=== PATIENT | male | born 1970 | race Caucasian/White ===

== ENCOUNTER 2023-08-03 07:06 | Outpatient (CLI) | payer OTHER, SELFPAY ==
--- NOTE | ~2023-08-03 | CT_ITS ---
CT of the Abdomen: Indication: Upper abdominal pain Technique: 2.5 mm axial scans were obtained through the abdomen following intravenous administration of 100 cc of Omnipaque 350. Dose reduction technique was used on this scan by utilizing automated ex posure control and iterative reconstruction technique. The dose-length product (DLP) was 1038.60 mGy- cm. Findings: Scans through the lung bases demonstrate bibasilar noncalcified pulmonary nodules, measuri ng 5 mm the right lung base (axial image 23), and 4 mm and 8 mm at the left lung base (axial images 1 4, 28 respectively).. The liver, spleen, pancreas, gallbladder, adrenals and kidneys are within normal limits. No evidence of aortic aneurysm. No lymphadenopathy. Evidence of prior bariatric surgery noted. Visualized bowel loops are otherwise unremarkable. Small f at-containing umbilical hernia noted. No ascites seen. Impression: No acute abnormality seen. Evidence of prior bariatric surgery. Subcentimeter pulmonary nodules, as detailed above. According to Fleischner Society criteria, for a l ow-risk patient, recommend follow-up CT at 3-6 months, then consider additional 18-[address] For h igh-risk patient, follow-up CT scans at 3-6 months and at 18-24 months are recommended. Small fat-containing umbilical hernia. Reviewed, dictated and finalized at location . AL SOURCING MANAGER Impression: No acute abnormality seen. Evidence of prior bariatric surgery. Subcentimeter pulmonary nodules, as detailed above. According to Fleischner Soc iety criteria, for a low-risk patient, recommend follow-up CT at 3-6 months, th en consider additional 18-[address]. For high-risk patient, follow-up CT scan s at 3-6 months and at 18-24 months are recommended. Small fat-containing umbilical hernia.
== END 2023-08-03 07:07 | disposition home or self-care (01) ==
PROVIDERS: PCP Nurse Practitioner Family; Visit Provider Nurse Practitioner Family
DX: R17 Unspecified jaundice (principal); D64.9 Anemia, unspecified; R10.10 Upper abdominal pain, unspecified; Z98.890 Other specified postprocedural states; R91.8 Other nonspecific abnormal finding of lung field; K42.9 Umbilical hernia without obstruction or gangrene
CPT/HCPCS: 74160; Q9967

== ENCOUNTER 2023-09-17 00:21 | Day surgery (SDC) | payer OTHER, SELFPAY ==
[2023-09-08 15:40] VITALS: BMI 40.0
--- NOTE | 2023-09-09 10:52 | PC.NURSE ---
Patients states he had a normal colonoscopy earlier this year at [facility] and wasn't sure why he needed another one. Spoke with Brenda Pringle in Dr. Soto office- she spoke with Yesenia Rice NP and after review colonoscopy was canceled. I spoke with patient and informed him.
--- NOTE | 2023-09-15 12:10 | SUR.PREOP ---
Patient called regarding upcoming procedure. Reviewed preop instructions, appointment times, and procedure prep.
--- NOTE | 2023-09-17 13:01 | PM.HPGS ---
History of Present Illness History of Present Illness Consent: Risks, benefits, and alternatives have been discussed and questions answered. Patient agrees to proceed with procedure. Chief complaint: Upper Abdominal Pain,Abdominal Distension(gaseous) Narrative: Jesu Berry Jr. is a 53 year old male with history of Dariana-en-Y in 2007, gallbladder removal in 2009 was referred to office for evaluation of upper abdominal pain that started approximately 1-2 months ago. States abdominal pain radiated across upper abdomen over to left upper quadrant, And also at times to the right upper quadrant. After a few days this past. He does recall that he had 1 very little color stool during that period of time also. He wonders if he may have had a bile duct stone.. He states his upper abdomen felt tender and irritated. He reports associated bloating and abdominal tightness. symptoms have improved somewhat after going back on omeprazole. Review of Systems Review of Systems: All systems reviewed & are unremarkable except as noted in HPI and below PMFSH Past Medical History Medical History Afib Anemia Arthritis Asthma Bilateral knee pain Bloating Encounter to establish care GERD (gastroesophageal reflux disease) Iron deficiency anemia Low back pain Multiple lung nodules BRIGHT on CPAP Seasonal allergies Total bilirubin, elevated Upper abdominal pain Family History Family History Father Liver cancer Heart disease Mother Asthma Sibling Asthma Diabetes mellitus Hypertension Daughter Asthma Son Asthma Son Asthma Mother Family history of thyroid disease Patient's mother is in good health Family history of arthritis Father Diabetes mellitus Family history of malignant neoplasm, Onset Age: 60 Sibling Diabetes mellitus Hypertension Patient's sister is in good health Patient's brother is in good health Social History Social History Smoking packs per day: 2.5 Smoking cigarettes per day: 50.0 Years smoked: 20 Smoking pack-years: 50.00 Smoking status: Former smoker Tobacco type: cigarettes Alcohol intake: current Drinks per week: 7 Alcohol use details: WEEKS/ DRINKS Substance use: never Current Housing: Decline to Answer Concerned About Future Housing: Decline to Answer Difficulty Paying Gas/Electric Bills: Decline to Answer Difficulty Paying for Meds: Decline to Answer Currently Unemployed: Decline to Answer Education: Decline to Answer Difficulty w/ Childcare or Family Care: Decline to Answer Living arrangements: with family Spiritual care concerns: No Meds Home Medications and Allergies Home Medications Medication Instructions Recorded Confirmed Type aspirin 81 mg tablet,delayed 81 mg PO DAILY 08/30/19 09/08/23 History release (Adult Aspirin Regimen) cyclobenzaprine 10 mg tablet 10 mg PO TID PRN Muscle Spasm 08/30/19 09/08/23 History acetaminophen 650 mg PO PRN PRN Pain 07/23/23 09/08/23 History albuterol sulfate 90 mcg/actuation 1 inh inhalation Q4H PRN Shortness 07/23/23 09/08/23 History aerosol inhaler Of Breath Or Wheezing atorvastatin 40 mg tablet 40 mg PO DAILY 07/23/23 09/08/23 History bisoprolol fumarate 10 mg tablet 10 mg PO HS 07/23/23 09/09/23 History coQ10 (ubiquinol) 1 cap PO DAILY 07/23/23 09/08/23 History omega-3 fatty acids [Fish Oil] 1,200 mg PO BID 07/23/23 09/08/23 History omeprazole 20 mg capsule,delayed 20 mg PO DAILY 07/23/23 09/08/23 History release rivaroxaban 20 mg tablet (Xarelto) 20 mg PO DAILY 07/23/23 09/08/23 History tramadol 50 mg tablet 50 mg PO Q6H PRN Pain 07/23/23 09/08/23 History zolpidem 5 mg tablet 5 mg PO QHS 07/23/23 09/08/23 History ferrous sulfate 325 mg (65 mg 325 mg PO DAILY 1 month #30 tabs 08/26/23 09/08/23 Rx iron) tablet amoxicilli
[2023-09-17 13:15] VITALS: BP 144/78; PULSE 72; RESP 18; TEMP 36.4; O2SAT 99
[2023-09-17] MEDS: LACTATED RINGERS 1,000 ML 150 ML IV CONT (13:27)
--- NOTE | 2023-09-17 13:29 | WPDANESEPPF ---
Anes - Initial Pre Proc Eval Procedure: Operation Date: 09/17/23 14:30 Proposed Procedures p Esophagogastroduodenoscopy - Oumar Ramirez MD Date/Time: 09/17/23 13:29 Surgeon: Oumar Ramirez MD Pre Op Diagnosis: Upper Abdominal Pain,Abdominal Distension(gaseous) Patient Data Age: 53 Gender: M Height: 1.83 m Weight: 130.7 kg Last Vital Signs Temp 97.6 F 09/17/23 13:15 Pulse 72 09/17/23 13:15 Resp 18 09/17/23 13:15 BP 144/78 H 09/17/23 13:15 Pulse Ox 99 09/17/23 13:15 O2 Del Method Room Air 09/17/23 13:15 Allergies Allergy/AdvReac Type Severity Reaction Status Date / Time Sulfa (Sulfonamide Allergy Intermediate hives Verified 09/17/23 13:14 Antibiotics) Home Medications Medication Instructions Recorded Confirmed Type aspirin 81 mg tablet,delayed 81 mg PO DAILY 08/30/19 09/08/23 History release (Adult Aspirin Regimen) cyclobenzaprine 10 mg tablet 10 mg PO TID PRN Muscle Spasm 08/30/19 09/08/23 History acetaminophen 650 mg PO PRN PRN Pain 07/23/23 09/08/23 History albuterol sulfate 90 mcg/actuation 1 inh inhalation Q4H PRN Shortness 07/23/23 09/08/23 History aerosol inhaler Of Breath Or Wheezing atorvastatin 40 mg tablet 40 mg PO DAILY 07/23/23 09/08/23 History bisoprolol fumarate 10 mg tablet 10 mg PO HS 07/23/23 09/09/23 History coQ10 (ubiquinol) 1 cap PO DAILY 07/23/23 09/08/23 History omega-3 fatty acids [Fish Oil] 1,200 mg PO BID 07/23/23 09/08/23 History omeprazole 20 mg capsule,delayed 20 mg PO DAILY 07/23/23 09/08/23 History release rivaroxaban 20 mg tablet (Xarelto) 20 mg PO DAILY 07/23/23 09/08/23 History tramadol 50 mg tablet 50 mg PO Q6H PRN Pain 07/23/23 09/08/23 History zolpidem 5 mg tablet 5 mg PO QHS 07/23/23 09/08/23 History ferrous sulfate 325 mg (65 mg 325 mg PO DAILY 1 month #30 tabs 08/26/23 09/08/23 Rx iron) tablet amoxicillin 875 mg-potassium 1 tablet PO Q12H #20 tabs 09/04/23 09/08/23 Rx clavulanate 125 mg tablet Slow-Mag 1 tab-cap PO DAILY 09/08/23 09/08/23 History cetirizine 10 mg tablet 10 mg PO DAILY 09/08/23 09/08/23 History multivit,calcium,min-folic acid 1 tablet PO DAILY 09/08/23 09/08/23 History 240 mcg-D3 25 mcg-lycop 300 mcg tablet (One A Day Men Complete) vitamin E (dl, acetate) 180 mg 180 mg PO DAILY 09/08/23 09/08/23 History (400 unit) capsule Patient hx anesthesia problems: none Family hx anesthesia problems: none Results Review: All pre-operative results and documents have been reviewed as part of the pre-operative evaluation. [facility] Past Medical History Medical History Afib Anemia Arthritis Asthma Bilateral knee pain Bloating Encounter to establish care GERD (gastroesophageal reflux disease) Iron deficiency anemia Low back pain Multiple lung nodules BRIGHT on CPAP Seasonal allergies Total bilirubin, elevated Upper abdominal pain Family History Family History Father Liver cancer Heart disease Mother Asthma Sibling Asthma Diabetes mellitus Hypertension Daughter Asthma Son Asthma Son Asthma Mother Family history of thyroid disease Patient's mother is in good health Family history of arthritis Father Diabetes mellitus Family history of malignant neoplasm, Onset Age: 60 Sibling Diabetes mellitus Hypertension Patient's sister is in good health Patient's brother is in good health Social History Social History Smoking packs per day: 2.5 Smoking cigarettes per day: 50.0 Years smoked: 20 Smoking pack-years: 50.00 Smoking status: Former smoker Tobacco type: cigarettes Alcohol intake: current Drinks per week: 7 Alcohol use details: WEEKS/ DRINKS Substance use: never Current Housing: Decline to Answer Concerned About Future Housing: Decline to Answer Difficulty Paying Gas/Elec
[2023-09-17 13:52] VITALS: BP 111/58; PULSE 73; RESP 21; O2SAT 99
[2023-09-17 14:02] VITALS: BP 109/51; PULSE 76; RESP 17; O2SAT 99
[2023-09-17 14:12] VITALS: BP 125/65; PULSE 62; RESP 18; O2SAT 100
== END 2023-09-17 14:15 | disposition home or self-care (01) ==
PROVIDERS: PCP Nurse Practitioner Family; Visit Provider Internal Medicine Gastroenterology
PROC: 0DJ08ZZ Inspection of Upper Intestinal Tract, Via Natural or Artificial Opening Endoscopic (ICD-10-PCS; CPT 43235; principal; 2023-09-17 14:30)
DX: K21.00 Gastro-esophageal reflux disease with esophagitis, without bleeding (principal); D50.9 Iron deficiency anemia, unspecified; I48.91 Unspecified atrial fibrillation; D64.9 Anemia, unspecified; J45.909 Unspecified asthma, uncomplicated; G47.33 Obstructive sleep apnea (adult) (pediatric); E66.01 Morbid (severe) obesity due to excess calories; Z68.39 Body mass index [BMI] 39.0-39.9, adult; Z79.82 Long term (current) use of aspirin; Z79.51 Long term (current) use of inhaled steroids; Z79.01 Long term (current) use of anticoagulants; Z79.891 Long term (current) use of opiate analgesic; Z99.89 Dependence on other enabling machines and devices; Z87.891 Personal history of nicotine dependence; Z82.49 Family history of ischemic heart disease and other diseases of the circulatory system; Z80.0 Family history of malignant neoplasm of digestive organs
CPT/HCPCS: 43239; 88305; J2704; J7120

== ENCOUNTER 2023-11-02 13:24 | Outpatient (CLI) | payer OTHER, SELFPAY ==
--- NOTE | ~2023-11-02 | XR_ITS ---
EXAMINATION: XR chest 2V DATE: 11/02/2023 13:39 INDICATION: Chronic cough and congestion TECHNIQUE: PA and lateral views of the chest were obtained. COMPARISON: CT abdomen dated 08/07/2023 FINDINGS: Asymmetric subtle nodular opacity at the posterior right midlung zone. No other airspace opacities, p ulmonary edema, pleural effusion or pneumothorax. The cardiomediastinal silhouette is normal. Mild th oracic spondylosis with bridging osteophytes at multiple levels consistent with diffuse idiopathic sk eletal hyperostosis (DISH). IMPRESSION: 1. Subtle nodular opacity at the posterior right midlung zone. Recommend low-dose noncontrast chest C T for further evaluation. Reviewed, dictated and finalized at location A. PROFILER IMPRESSION: 1. Subtle nodular opacity at the posterior right midlung zone. Recommend low-do se noncontrast chest CT for further evaluation.
== END 2023-11-02 13:25 ==
PROVIDERS: PCP Nurse Practitioner Family; Visit Provider Nurse Practitioner Family
DX: R91.8 Other nonspecific abnormal finding of lung field (principal)
CPT/HCPCS: 71046

== ENCOUNTER 2023-11-10 11:08 | Outpatient (CLI) | payer OTHER, SELFPAY ==
--- NOTE | ~2023-11-10 | CT_ITS ---
EXAMINATION: CT chest high resolution wo dc DATE: 11/10/2023 11:23 INDICATION: Pulmonary nodules, abnormal chest radiograph TECHNIQUE: Computed tomography (CT) of the chest was performed without intravenous contrast. The dose -length product (DLP) was 805.79 mGy-cm. Automated exposure control and iterative reconstruction tech [employer] were employed. COMPARISON: 11/02/[address] dated 08/03/2023 FINDINGS: No suspicious CT correlate is identified for the reported nodule on the comparison chest ra diograph. Suspect finding was related to pulmonary vasculature. There are stable nodules in the lower lobes measuring up to 6 mm on the left. There are subtle patchy airspace opacities in the right uppe r and lower lobes. No pathologically enlarged thoracic lymph nodes are identified. The heart size is normal. There is calcified coronary artery atherosclerosis. Surgical changes are noted in the stomach . There is mild thoracic spondylosis. IMPRESSION: 1. No suspicious CT correlate identified for the nodule questioned on the comparison chest radiograph . 2. Stable nodules of the visualized lung bases measuring up to 6 mm, likely old granulomatous disease . 3. Subtle airspace opacities in the right upper and lower lobes, likely pneumonia. Reviewed, dictated and finalized at location L. IC SPEAKING PROFESSOR IMPRESSION: 1. No suspicious CT correlate identified for the nodule questioned on the gena rison chest radiograph. 2. Stable nodules of the visualized lung bases measuring up to 6 mm, likely old granulomatous disease. 3. Subtle airspace opacities in the right upper and lower lobes, likely pneumon ia.
== END 2023-11-10 11:09 ==
LOC: MICIMG 11:10
PROVIDERS: PCP Nurse Practitioner Family; Visit Provider Nurse Practitioner Family
DX: R91.8 Other nonspecific abnormal finding of lung field (principal)
CPT/HCPCS: 71250